=== PATIENT | male | born 1960 | race Caucasian/White ===

== ENCOUNTER 2021-12-21 10:57 | Emergency (ER) | payer MEDICARE, MEDICAID ==
[~2021-12-21] VITALS: Ht 167.6 cm; Wt 100.0 kg
[~2021-12-21 10:57] MED LIST: ARIPIPRAZOLE20 MG PO; BUPROPION HYDRO75 MG PO; CITALOPRAM40 MG PO; FINASTERIDE5 MG PO; GABAPENTIN300 M2 PO; ISOSORBIDE DINIT5 MG PO; ROSUVASTATIN CA40 MG PO; TAMSULOSIN HCL0.4 MG PO; TRAZODONE100 MG PO
[2021-12-21 11:21] VITALS: BP 169/87
[2021-12-21 12:00] LABS: URINE BILIRUBIN - DIPSTICK NEGATIVE (NEGATIVE); URINE BLOOD DIPSTICK LARGE (NEGATIVE); URINE COLOR YELLOW; URINE GLUCOSE - DIPSTICK NEGATIVE (NEGATIVE); URINE KETONE NEGATIVE (NEGATIVE); URINE LEUK ESTERASE MODERATE (NEGATIVE); URINE NITRITE - DIPSTICK POSITIVE (Negative); URINE PROTEIN - DIPSTICK 30 mg/dL (NEG-TRACE); URINE SPECIFIC GRAVITY 1.025
[2021-12-21 12:07] LABS: URINE RBC 0-2 RBC/hpf (0-5); URINE WBC 50-100 WBC/hpf (0-5)
[2021-12-21 12:08] LABS: URINE BACTERIA FEW hpf
[2021-12-21] MEDS ORDERED: OMNI-PAC300 MG PO (12:46)
== END 2021-12-21 12:47 | disposition home or self-care (01) ==
LOC: ED 10:57
PROVIDERS: Family Medicine
PROC: 0T2BX0Z Change Drainage Device in Bladder, External Approach (ICD-10-PCS; principal; 2021-12-21)
DX: N40.1 Benign prostatic hyperplasia with lower urinary tract symptoms (principal); R33.8 Other retention of urine; N39.0 Urinary tract infection, site not specified; B95.62 Methicillin resistant Staphylococcus aureus infection as the cause of diseases classified elsewhere; F31.9 Bipolar disorder, unspecified; F41.9 Anxiety disorder, unspecified; F20.9 Schizophrenia, unspecified; E78.00 Pure hypercholesterolemia, unspecified; F17.200 Nicotine dependence, unspecified, uncomplicated

== ENCOUNTER 2021-12-26 21:12 | Emergency (ER) | payer MEDICARE, MEDICAID ==
[~2021-12-26] VITALS: Ht 177.8 cm; Wt 100.0 kg
[~2021-12-26 21:12] MED LIST changes: +OMNI-PAC300 MG PO
[2021-12-26 23:00] VITALS: BP 119/74
== END 2021-12-26 23:00 | disposition home or self-care (01) ==
LOC: ED 21:12
DX: T83.091A Other mechanical complication of indwelling urethral catheter, initial encounter (principal); N40.0 Benign prostatic hyperplasia without lower urinary tract symptoms; F31.9 Bipolar disorder, unspecified; F41.9 Anxiety disorder, unspecified; E78.00 Pure hypercholesterolemia, unspecified; Y84.6 Urinary catheterization as the cause of abnormal reaction of the patient, or of later complication, without mention of misadventure at the time of the procedure

== ENCOUNTER 2021-12-27 07:46 | Emergency (ER) | payer MEDICARE, MEDICAID ==
[2021-12-27] VITALS (8 sets, daily range): BP systolic 124–169; BP diastolic 77–101
[~2021-12-27] VITALS: Ht 177.8 cm; Wt 102.0 kg
[2021-12-27 08:45] LABS: ALBUMIN 3.5 g/dL (3.2-5.0); ALKALINE PHOSPHATASE 82 u/l (38-126); CHLORIDE 105 mmol/l (95-108); POTASSIUM 3.8 mmol/l (3.5-5.1); SGOT/AST 29 u/l (17-59); TOTAL PROTEIN 6.6 g/dL (6.3-8.2)
[2021-12-27 08:46] LABS: ANION GAP 14 (6-22 (CALC)); BILIRUBIN, TOTAL 0.3 mg/dL (0.0-1.4); BUN 15 mg/dL (9-20); BUN/CREATININE RATIO 17 (12-20 (CALC)); CARBON DIOXIDE 25 mmol/l (22-30); CREATININE 0.9 mg/dL (0.7-1.3); GFR > 60 ML/MIN (>=60 (CALC)); GFR FOR AFR.AMER. > 60 ML/MIN (>=60 (CALC)); SODIUM 140 mmol/l (137-146)
[2021-12-27 08:53] LABS: HEMATOCRIT 41.3 % (39.0-50.0); HEMOGLOBIN 13.4 g/dl (14.0-18.0); IMMATURE GRANULOCYTES 0.6 % (0.0-5.0); MEAN CORPUSCULAR HGB 29.5 pG CALC (26.0-32.0); MEAN CORPUSCULAR HGB CONC 32.4 g/dL CAL (32.0-36.0); NEUT# 4.06 thou/uL (1.82-7.42); RED BLOOD COUNT 4.54 mill/uL (4.70-6.10); RED CELL DISTRI WIDTH 12.7 % (11.5-15.5)
[2021-12-27 08:56] LABS: URINE BILIRUBIN - DIPSTICK NEGATIVE (NEGATIVE); URINE BLOOD DIPSTICK LARGE (NEGATIVE); URINE COLOR YELLOW; URINE GLUCOSE - DIPSTICK NEGATIVE (NEGATIVE); URINE KETONE NEGATIVE (NEGATIVE); URINE PH 8.5 (4.5-8.0); URINE PROTEIN - DIPSTICK 30 mg/dL (NEG-TRACE); URINE UROBILINOGEN - DIPSTICK 0.2 E.U./dL (0.2)
[2021-12-27 08:57] LABS: URINE BACTERIA MANY hpf; URINE EPITHELIAL CELLS MODERATE EPI/hpf (0-FEW); URINE LEUK ESTERASE MODERATE (NEGATIVE); URINE NITRITE - DIPSTICK NEGATIVE (Negative); URINE WBC 20-50 WBC/hpf (0-5)
== END 2021-12-27 09:37 | disposition home or self-care (01) ==
LOC: ED 07:46
PROVIDERS: Emergency Medicine
DX: N39.0 Urinary tract infection, site not specified (principal); N40.1 Benign prostatic hyperplasia with lower urinary tract symptoms; R33.8 Other retention of urine; F31.9 Bipolar disorder, unspecified; F41.9 Anxiety disorder, unspecified; E78.00 Pure hypercholesterolemia, unspecified; B96.5 Pseudomonas (aeruginosa) (mallei) (pseudomallei) as the cause of diseases classified elsewhere; Z96.0 Presence of urogenital implants; Z95.5 Presence of coronary angioplasty implant and graft; R33.9 Retention of urine, unspecified
CPT/HCPCS: Q9967

== ENCOUNTER 2021-12-27 12:56 | Emergency (ER) | payer MEDICARE, MEDICAID ==
[~2021-12-27] VITALS: Ht 177.8 cm; Wt 100.0 kg
[2021-12-27 14:06] VITALS: BP 165/97
[2021-12-27 14:27] LABS: HEMATOCRIT 43.5 % (39.0-50.0); HEMOGLOBIN 14.3 g/dl (14.0-18.0); IMMATURE GRANULOCYTES 0.5 % (0.0-5.0); MEAN CELL VOLUME 90.4 fL CALC (80.0-100.0); MEAN CORPUSCULAR HGB 29.7 pG CALC (26.0-32.0); MEAN CORPUSCULAR HGB CONC 32.9 g/dL CAL (32.0-36.0); NEUT# 8.66 thou/uL (1.82-7.42); RED BLOOD COUNT 4.81 mill/uL (4.70-6.10); RED CELL DISTRI WIDTH 12.8 % (11.5-15.5)
[2021-12-27 14:30] VITALS: BP 133/85
[2021-12-27 14:39] LABS: ALKALINE PHOSPHATASE 104 u/l (38-126); ANION GAP 15 (6-22 (CALC)); BILIRUBIN, TOTAL 0.4 mg/dL (0.0-1.4); BUN 14 mg/dL (9-20); BUN/CREATININE RATIO 15 (12-20 (CALC)); CARBON DIOXIDE 23 mmol/l (22-30); CHLORIDE 103 mmol/l (95-108); CREATININE 0.9 mg/dL (0.7-1.3); GFR > 60 ML/MIN (>=60 (CALC)); GFR FOR AFR.AMER. > 60 ML/MIN (>=60 (CALC)); POTASSIUM 3.6 mmol/l (3.5-5.1); SGOT/AST 32 u/l (17-59); SODIUM 137 mmol/l (137-146); TOTAL PROTEIN 7.8 g/dL (6.3-8.2)
[2021-12-27 14:50] LABS: MYOGLOBIN 102 ng/mL (0 - 121)
[2021-12-27 15:00] VITALS: BP 110/75
[2021-12-27 16:00] VITALS: BP 105/64
[2021-12-27 16:30] VITALS: BP 102/60
[2021-12-27 17:00] VITALS: BP 103/58
== END 2021-12-27 17:24 | disposition home or self-care (01) ==
LOC: ED 12:56
PROVIDERS: Emergency Medicine
DX: N40.1 Benign prostatic hyperplasia with lower urinary tract symptoms (principal); R33.8 Other retention of urine; N39.0 Urinary tract infection, site not specified; F31.9 Bipolar disorder, unspecified; F41.9 Anxiety disorder, unspecified; E78.00 Pure hypercholesterolemia, unspecified; Z95.5 Presence of coronary angioplasty implant and graft; Z96.0 Presence of urogenital implants
CPT/HCPCS: Q9967

== ENCOUNTER 2021-12-31 08:26 | Emergency (ER) | payer MEDICARE, MEDICAID ==
[~2021-12-31] VITALS: Ht 177.8 cm; Wt 99.1 kg
[2021-12-31] MEDS ORDERED: PRAZOSIN HCL1 M1 PO (09:16)
[2021-12-31 09:23] VITALS: BP 132/77
== END 2021-12-31 09:23 | disposition home or self-care (01) ==
LOC: ED 08:26
PROC: 0T2BX0Z Change Drainage Device in Bladder, External Approach (ICD-10-PCS; principal; 2021-12-31)
DX: T83.038A Leakage of other urinary catheter, initial encounter (principal); N40.1 Benign prostatic hyperplasia with lower urinary tract symptoms; F31.9 Bipolar disorder, unspecified; F41.9 Anxiety disorder, unspecified; E78.00 Pure hypercholesterolemia, unspecified; Y84.6 Urinary catheterization as the cause of abnormal reaction of the patient, or of later complication, without mention of misadventure at the time of the procedure

== ENCOUNTER 2022-01-24 05:07 | Emergency (ER) | payer MEDICARE, MEDICAID ==
[~2022-01-24] VITALS: Ht 177.8 cm; Wt 99.0 kg
[~2022-01-24 05:07] MED LIST changes: +PRAZOSIN HCL1 M1 PO
[2022-01-24 05:14] VITALS: BP 142/98
[2022-01-24 05:27] LABS: URINE BILIRUBIN - DIPSTICK NEGATIVE (NEGATIVE); URINE BLOOD DIPSTICK LARGE (NEGATIVE); URINE COLOR YELLOW; URINE GLUCOSE - DIPSTICK NEGATIVE (NEGATIVE); URINE KETONE NEGATIVE (NEGATIVE); URINE LEUK ESTERASE MODERATE (NEGATIVE); URINE NITRITE - DIPSTICK POSITIVE (Negative); URINE PROTEIN - DIPSTICK 100 mg/dL (NEG-TRACE); URINE UROBILINOGEN - DIPSTICK 0.2 E.U./dL (0.2)
[2022-01-24 05:30] VITALS: BP 117/78
[2022-01-24 05:33] LABS: URINE SQUAMOUS EPITHELIAL CELL FEW EPI/hpf (0-FEW); URINE WBC 20-50 WBC/hpf (0-5)
[2022-01-24 05:34] LABS: URINE AMORPH SEDIMENT FEW hpf (NONE-FER); URINE BACTERIA MANY hpf
[2022-01-24] MEDS ORDERED: BACTRIM DS1 TAB PO (05:49)
[2022-01-24] MEDS ORDERED: LOTRISONE CREAM15 G1 EX (05:49)
[2022-01-24 05:54] VITALS: BP 117/78
== END 2022-01-24 06:03 | disposition home or self-care (01) ==
LOC: ED 05:07
PROVIDERS: Family Medicine
DX: T83.9XXA Unspecified complication of genitourinary prosthetic device, implant and graft, initial encounter (principal); N48.1 Balanitis; N40.0 Benign prostatic hyperplasia without lower urinary tract symptoms; F31.9 Bipolar disorder, unspecified; F41.9 Anxiety disorder, unspecified; E78.00 Pure hypercholesterolemia, unspecified; R82.71 Bacteriuria; Y84.6 Urinary catheterization as the cause of abnormal reaction of the patient, or of later complication, without mention of misadventure at the time of the procedure

== ENCOUNTER 2022-02-07 10:35 | Emergency (ER) | payer MEDICARE, MEDICAID ==
[2022-02-07] VITALS (9 sets, daily range): BP systolic 114–150; BP diastolic 51–90
[~2022-02-07] VITALS: Ht 177.8 cm; Wt 97.8 kg
[~2022-02-07 10:35] MED LIST changes: +BACTRIM DS1 TAB PO; +LOTRISONE CREAM15 G1 EX
[2022-02-07 12:27] LABS: URINE BILIRUBIN - DIPSTICK NEGATIVE (NEGATIVE); URINE BLOOD DIPSTICK LARGE (NEGATIVE); URINE COLOR YELLOW; URINE GLUCOSE - DIPSTICK NEGATIVE (NEGATIVE); URINE KETONE NEGATIVE (NEGATIVE); URINE PROTEIN - DIPSTICK 100 mg/dL (NEG-TRACE); URINE SPECIFIC GRAVITY >=1.030; URINE UROBILINOGEN - DIPSTICK 0.2 E.U./dL (0.2)
[2022-02-07 12:28] LABS: URINE LEUK ESTERASE MODERATE (NEGATIVE); URINE NITRITE - DIPSTICK NEGATIVE (Negative)
[2022-02-07 12:30] LABS: URINE BACTERIA MODERATE hpf; URINE EPITHELIAL CELLS MODERATE EPI/hpf (0-FEW); URINE RBC 25-50 RBC/hpf (0-5); URINE WBC 20-50 WBC/hpf (0-5)
[2022-02-07] MEDS ORDERED: DOXYCYCLINE100 MG PO (13:19)
== END 2022-02-07 14:31 | disposition home or self-care (01) ==
LOC: ED 10:35
PROVIDERS: Internal Medicine
PROC: 0T2BX0Z Change Drainage Device in Bladder, External Approach (ICD-10-PCS; principal; 2022-02-07)
DX: T83.031A Leakage of indwelling urethral catheter, initial encounter (principal); N39.0 Urinary tract infection, site not specified; B95.2 Enterococcus as the cause of diseases classified elsewhere; F31.9 Bipolar disorder, unspecified; F41.9 Anxiety disorder, unspecified; N40.0 Benign prostatic hyperplasia without lower urinary tract symptoms; Y84.6 Urinary catheterization as the cause of abnormal reaction of the patient, or of later complication, without mention of misadventure at the time of the procedure
CPT/HCPCS: J0713

== ENCOUNTER 2022-03-03 14:54 | Emergency (ER) | payer MEDICARE, MEDICAID ==
[~2022-03-03] VITALS: Ht 177.8 cm; Wt 99.6 kg
[~2022-03-03 14:54] MED LIST changes: +DOXYCYCLINE100 MG PO
[2022-03-03 15:02] VITALS: BP 148/95
[2022-03-03 15:20] VITALS: BP 148/95
== END 2022-03-03 15:20 | disposition home or self-care (01) ==
LOC: ED 14:54
DX: Z46.6 Encounter for fitting and adjustment of urinary device (principal); F31.9 Bipolar disorder, unspecified; F41.9 Anxiety disorder, unspecified; E78.00 Pure hypercholesterolemia, unspecified; Z98.890 Other specified postprocedural states; Z96.0 Presence of urogenital implants

== ENCOUNTER 2022-03-06 13:15 | Emergency (ER) | payer MEDICARE, MEDICAID ==
[2022-03-06] VITALS (8 sets, daily range): BP systolic 127–147; BP diastolic 83–104
[~2022-03-06] VITALS: Ht 177.8 cm; Wt 70.0 kg
== END 2022-03-06 15:20 | disposition home or self-care (01) ==
LOC: ED 13:15
DX: T83.031A Leakage of indwelling urethral catheter, initial encounter (principal); F31.9 Bipolar disorder, unspecified; F41.9 Anxiety disorder, unspecified; E78.00 Pure hypercholesterolemia, unspecified; Y84.6 Urinary catheterization as the cause of abnormal reaction of the patient, or of later complication, without mention of misadventure at the time of the procedure; Z98.890 Other specified postprocedural states

== ENCOUNTER 2022-07-05 15:31 | Emergency (ER) | payer MEDICARE, MEDICAID ==
[2022-07-05] VITALS (9 sets, daily range): BP systolic 108–128; BP diastolic 70–88
[~2022-07-05] VITALS: Ht 172.7 cm; Wt 101.8 kg
[2022-07-05 16:30] LABS: HEMATOCRIT 42.4 % (39.0-50.0); HEMOGLOBIN 14.4 g/dl (14.0-18.0); IMMATURE GRANULOCYTES 0.5 % (0.0-5.0); MEAN CELL VOLUME 88.1 fL CALC (80.0-100.0); MEAN CORPUSCULAR HGB 29.9 pG CALC (26.0-32.0); NEUT# 3.04 thou/uL (1.82-7.42); RED BLOOD COUNT 4.81 mill/uL (4.70-6.10); RED CELL DISTRI WIDTH 13.2 % (11.5-15.5)
[2022-07-05 17:14] LABS: ALBUMIN 4.1 g/dL (3.2-5.0); ALKALINE PHOSPHATASE 120 u/l (38-126); BILIRUBIN, TOTAL 0.3 mg/dL (0.0-1.4); BUN 16 mg/dL (8-23); BUN/CREATININE RATIO 16 (12-20 (CALC)); CARBON DIOXIDE 25 mmol/l (22-30); CREATININE 0.9 mg/dL (0.7-1.3); GFR FOR AFR.AMER. > 60 ML/MIN (>=60 (CALC)); GFR OTHER RACES > 60 ML/MIN (>=60 (CALC)); TOTAL PROTEIN 7.2 g/dL (6.3-8.2)
[2022-07-05 17:15] LABS: POTASSIUM 3.9 mmol/l (3.5-5.1); SODIUM 140 mmol/l (137-146)
[2022-07-05 17:16] LABS: ANION GAP 12 (6-22 (CALC)); CHLORIDE 107 mmol/l (95-108); SGOT/AST 61 u/l (19-48)
== END 2022-07-05 18:38 | disposition home or self-care (01) ==
LOC: ED 15:31
PROVIDERS: Family Medicine
DX: M25.552 Pain in left hip (principal); F41.9 Anxiety disorder, unspecified; F31.9 Bipolar disorder, unspecified; Z95.5 Presence of coronary angioplasty implant and graft

== ENCOUNTER 2022-12-12 09:47 | Observation (INO) | payer MEDICARE, MEDICAID ==
[~2022-12-12] VITALS: Ht 172.7 cm; Wt 70.2 kg
--- NOTE | 2022-12-12 09:47 | NUR ---
PATIENT TO ROOM 6 VIA EMS
[2022-12-12 10:24] LABS: BASO% 0.1 % (0-3); EOS% 0.9 % (0-8); HEMATOCRIT 43.7 % (39.0-50.0); HEMOGLOBIN 14.7 g/dl (14.0-18.0); IMMATURE GRANULOCYTES 0.2 % (0.0-5.0); LYMPH% 23.5 % (15-41); MEAN CELL VOLUME 89.5 fL CALC (80.0-100.0); MEAN CORPUSCULAR HGB 30.1 pG CALC (26.0-32.0); MEAN CORPUSCULAR HGB CONC 33.6 g/dL CAL (32.0-36.0); MONO% 10.3 % (2-13); NEUT# 5.22 thou/uL (1.82-7.42); RED BLOOD COUNT 4.88 mill/uL (4.70-6.10); RED CELL DISTRI WIDTH 12.7 % (11.5-15.5)
[2022-12-12 10:33] LABS: ALBUMIN 4.3 g/dL (3.2-5.0); ALKALINE PHOSPHATASE 122 u/l (38-126); ANION GAP 12 (6-22 (CALC)); BUN 17 mg/dL (8-23); BUN/CREATININE RATIO 17 (12-20 (CALC)); CARBON DIOXIDE 24 mmol/l (22-30); CHLORIDE 107 mmol/l (95-108); GFR FOR AFR.AMER. > 60 ML/MIN (>=60 (CALC)); GFR OTHER RACES > 60 ML/MIN (>=60 (CALC)); POTASSIUM 3.6 mmol/l (3.5-5.1); SGOT/AST 36 u/l (19-48); SODIUM 139 mmol/l (137-146); TOTAL PROTEIN 7.2 g/dL (6.3-8.2)
[2022-12-12 10:39] LABS: BILIRUBIN, TOTAL 0.6 mg/dL (0.2-1.3)
--- NOTE | 2022-12-12 11:00 | NUR ---
Reassessment of patient completed. No distress noted.
--- NOTE | 2022-12-12 12:00 | NUR ---
Reassessment of patient completed. No distress noted.
--- NOTE | 2022-12-12 13:00 | NUR ---
Reassessment of patient completed. No distress noted.
[2022-12-12 13:07] VITALS: BP 129/68
--- NOTE | 2022-12-12 13:15 | NUR ---
Admission Note Report Given to: Transported by: Wheelchair X Stretcher Transported with: X Nurse Transporter X Patent IV O2 X Design Lead Location: ICU X MS2
[2022-12-12 19:05] VITALS: BP 118/75
[2022-12-13 00:39] VITALS: BP 100/66
[2022-12-13 03:42] LABS: CHOLESTEROL HDL RATIO 4.6 (<4.4 (CALC)); MAGNESIUM 2.1 mg/dL (1.6-2.3)
[2022-12-13 04:12] VITALS: BP 114/65
[2022-12-13 07:26] VITALS: BP 124/75
--- NOTE | 2022-12-13 07:41 | NUR ---
0700 BEDSIDE REPORT RECEIVED FROM JASMIN. PT ALERT AND ORIENTED X4. C/O 2/10 LEFT ARM PAIN RADIATING DOWN TO HAND. LEFT ARM/HAND ROM WITHIN NORMAL RANGE, CAPILLARY REFILL LESS THAN 3 SECONDS, WEAK RADIAL PULSE NOTED. DR. MODI MADE AWARE AWAITING ORDERS. RESP EVEN AND UNLABORED. PT UPDATED ON POC, VERBALIZES UNDERSTANDING. ALL PERSONAL ITEMS WITHIN REACH. SAFETY PRECAUTIONS IN PLACE.
[2022-12-13 08:19] VITALS: BP 124/75
[2022-12-13] MEDS ORDERED: SILODOSIN8 MG PO (10:55)
[2022-12-13 12:21] VITALS: BP 140/80
[2022-12-13 12:30] VITALS: BP 140/80
--- NOTE | 2022-12-13 12:35 | NUR ---
PT C/O 7/10 CHEST PAIN RADIATING DOWN LFT ARM. DR. KAM MADE AWARE AND NEW ORDERS RECEIVED FOR NITRO SL. NITRO SL X1 GIVEN WITH GOOD EFFECTS 0/10 PAIN AT THIS TIME. WILL MONITOR.
[2022-12-13] MEDS ORDERED: ISOSORB MONO30 MG PO (12:47)
[2022-12-13] MEDS ORDERED: ENTERIC COATED325 MG PO (12:47)
[2022-12-13] MEDS ORDERED: NITROGLYCER0.4 MG SL (12:48)
--- NOTE | 2022-12-13 14:55 | NUR ---
1430 IV REMOVED WITH TIP INTACT, NO IV RELATED COMPLICATIONS NOTED. TELE REMOVED. DC INSTRUCTIONS EXPLAINED IN DETAIL TO PT, PT VERBALIZES UNDERSTANDING AND DENIES QUESTIONS AT THIS TIME. PRESCRIPTIONS SENT TO PT'S PREFERRED PHARMACY ELECTRONICALLY. I CALLED AND PAID FOR BY HOSPITAL TO TRANSPORT PT HOME. PT DC'D HOME WITH ALL PERSONAL BELONGINGS VIA [facility] @ [id number].
== END 2022-12-13 14:29 | disposition home or self-care (01) ==
LOC: ED 09:47 → ED-I 10:45 → ED 10:58 → MS2 10:59
PROVIDERS: Emergency Medicine; ADMIT Internal Medicine; ATTEND Internal Medicine
DX: R07.9 Chest pain, unspecified (principal); I25.10 Atherosclerotic heart disease of native coronary artery without angina pectoris; F31.9 Bipolar disorder, unspecified; F41.9 Anxiety disorder, unspecified; E78.00 Pure hypercholesterolemia, unspecified; F20.0 Paranoid schizophrenia; E78.5 Hyperlipidemia, unspecified; T46.6X6A Underdosing of antihyperlipidemic and antiarteriosclerotic drugs, initial encounter; T46.3X6A Underdosing of coronary vasodilators, initial encounter; Z91.128 Patient's intentional underdosing of medication regimen for other reason; Z95.5 Presence of coronary angioplasty implant and graft
CPT/HCPCS: J1650

== ENCOUNTER 2023-04-23 17:57 | Emergency (ER) | payer MEDICARE, MEDICAID ==
[2023-04-23] VITALS (7 sets, daily range): BP systolic 109–158; BP diastolic 68–105
[~2023-04-23] VITALS: Ht 172.7 cm; Wt 110.0 kg
[~2023-04-23 17:57] MED LIST changes: +ENTERIC COATED325 MG PO; +ISOSORB MONO30 MG PO; +KEFLEX500 MG PO; +NITROGLYCER0.4 MG SL; +SILODOSIN8 MG PO; +TAMSULOSIN0.4 MG PO
[2023-04-23 19:47] LABS: BASO% 0.1 % (0-3); EOS% 0.3 % (0-8); HEMATOCRIT 45.7 % (39.0-50.0); HEMOGLOBIN 15.2 g/dl (14.0-18.0); IMMATURE GRANULOCYTES 0.3 % (0.0-5.0); LYMPH% 13.7 % (15-41); MEAN CELL VOLUME 88.7 fL CALC (80.0-100.0); MEAN CORPUSCULAR HGB 29.5 pG CALC (26.0-32.0); MEAN CORPUSCULAR HGB CONC 33.3 g/dL CAL (32.0-36.0); MONO% 5.6 % (2-13); NEUT# 6.18 thou/uL (1.82-7.42); RED BLOOD COUNT 5.15 mill/uL (4.70-6.10); RED CELL DISTRI WIDTH 12.5 % (11.5-15.5); URINE BILIRUBIN - DIPSTICK NEGATIVE (NEGATIVE); URINE BLOOD DIPSTICK LARGE (NEGATIVE); URINE COLOR RED; URINE GLUCOSE - DIPSTICK NEGATIVE (NEGATIVE); URINE KETONE 15 mg/dL (NEGATIVE); URINE PH 6.5 (4.5-8.0); URINE PROTEIN - DIPSTICK >=300 mg/dL (NEG-TRACE); URINE SPECIFIC GRAVITY 1.015
[2023-04-23 19:49] LABS: URINE LEUK ESTERASE MODERATE (NEGATIVE); URINE NITRITE - DIPSTICK POSITIVE (Negative)
[2023-04-23 19:52] LABS: URINE RBC TNTC RBC/hpf (0-5)
[2023-04-23 20:05] LABS: ALBUMIN 4.6 g/dL (3.2-5.0); ALKALINE PHOSPHATASE 114 u/l (38-126); ANION GAP 14 (6-22 (CALC)); BILIRUBIN, TOTAL 0.7 mg/dL (0.2-1.3); BUN 13 mg/dL (8-23); BUN/CREATININE RATIO 12 (12-20 (CALC)); CARBON DIOXIDE 23 mmol/l (22-30); CHLORIDE 106 mmol/l (95-108); CREATININE 1.1 mg/dL (0.7-1.3); GFR FOR AFR.AMER. > 60 ML/MIN (>=60 (CALC)); GFR OTHER RACES > 60 ML/MIN (>=60 (CALC)); POTASSIUM 4.3 mmol/l (3.5-5.1); SGOT/AST 34 u/l (19-48); SODIUM 138 mmol/l (137-146); TOTAL PROTEIN 7.4 g/dL (6.3-8.2)
== END 2023-04-23 21:00 | disposition home or self-care (01) ==
LOC: ED 17:57
PROVIDERS: Family Medicine
DX: T83.091A Other mechanical complication of indwelling urethral catheter, initial encounter (principal); N40.1 Benign prostatic hyperplasia with lower urinary tract symptoms; R33.8 Other retention of urine; N39.0 Urinary tract infection, site not specified; F31.9 Bipolar disorder, unspecified; F41.9 Anxiety disorder, unspecified; E78.00 Pure hypercholesterolemia, unspecified; Y84.6 Urinary catheterization as the cause of abnormal reaction of the patient, or of later complication, without mention of misadventure at the time of the procedure